=== PATIENT | female | born 1995 | race African-American/Black ===

== ENCOUNTER 2017-05-31 09:27 | Emergency (ER) | payer OTHER ==
[~2017-05-31] VITALS: Ht 162.6 cm; Wt 77.1 kg
[~2017-05-31 09:27] MED LIST: AMOXICILLIN 50500 M1 PO; IBUPROFEN 600600 M1 PO; IBUPROFEN 800800 M1 PO; NAPROSYN500 MG PO; TERAZOL 320 GM
== END 2017-05-31 10:20 | disposition home or self-care (01) ==
LOC: ER 09:27
DX: S60.453A Superficial foreign body of left middle finger, initial encounter (principal); G43.909 Migraine, unspecified, not intractable, without status migrainosus; F17.210 Nicotine dependence, cigarettes, uncomplicated; X58.XXXA Exposure to other specified factors, initial encounter; Y93.89 Activity, other specified; Y92.89 Other specified places as the place of occurrence of the external cause; Y99.8 Other external cause status